=== PATIENT | male | born 1955 | race Caucasian/White ===

== ENCOUNTER 2016-11-19 16:24 | Emergency (ER) | payer MEDICAID ==
[~2016-11-19] VITALS: Ht 188 cm; Wt 70.0 kg
[~2016-11-19 16:24] MED LIST: CARB200 PO; CYCL-36 PO; DARU800T PO; HYDR12.56 PO; IBUP600 PO; INTE200T2 PO; LISI30TA44 PO; NORV100T PO; OXYC5 PO; [UNRECOGNIZED DRUG - CODE] PO
[2016-11-19 16:27] VITALS: BP 179/98; PULSE 65; RESP 18; TEMP 98.2; O2SAT 98
--- NOTE | 2016-11-19 17:12 | PD ---
HPI Chief Complaint: Abdominal Pain Time Seen by Provider: 17:12 Travel History International Travel<30 days: No Contact w/Intl Traveler<30days: No Traveled to known affect area: No History of Present Illness HPI 61-year-old male with a history of HIV and hepatitis C presents to the emergency department for evaluation of bilateral hernias. The patient states that for the past 1-2 months he has developed bilateral inguinal hernias after lifting something heavy. That the pain usually lasts for only a few seconds and is aggravated only with heavy lifting or coughing. States that today he lifted a heavy box and the pain was greatly aggravated. States that they are still able to be reduced however he is in pain and came in for pain control. He denies any fever, chills, nausea, vomiting, diarrhea, constipation. States that he is on medications for HIV, CD4 count is above 200 and his viral load is undetectable. No other complaints. PFSH Past Medical History Hx Anticoagulant Therapy: Yes Arthritis: Yes Asthma: No Autoimmune Disease: Yes (FULL BLOWN AIDS ) Blood Disorders: No Anxiety: Yes Depression: Yes Heart Rhythm Problems: No Cancer: No Cardiovascular Problems: Yes (HTN) High Cholesterol: No Chemotherapy: No Chest Pain: No Congestive Heart Failure: No Cirrhosis: Yes COPD: No Cerebrovascular Accident: Yes Diabetes: No Diminished Hearing: No Endocrine: No Gastrointestinal Disorders: Yes (HX OF CIRRHOSIS, BILATERAL INGUINAL HERNIAS) GERD: Yes Glaucoma: No Genitourinary: Yes Headaches: Yes Hepatitis: Yes (HEP C ) Hiatal Hernia: No Hypertension: No Immune Disorder: Yes (HIV) Inguinal Hernia: Yes (BILATERAL ) Implanted Vascular Access Dvce: Yes Kidney Stones: No Musculoskeletal: Yes Neurologic: Yes Psychiatric: Yes Reproductive: No Respiratory: No Integumentary: Yes (H/O MRSA INFECTION HAND/ARMS) Migraines: Yes Myocardial Infarction: No Radiation Therapy: No Renal Failure: No Seizures: No Sickle Cell Disease: No Sleep Apnea: No Thyroid Disease: No Ulcer: Yes Tetanus Vaccination: < 5 Years Influenza Vaccination: No ?: Not Past Surgical History Abdominal Surgery: No AICD: No Appendectomy: No Arteriovenous Shunt: No Cardiac Surgery: No Cholecystectomy: No Ear Surgery: No Endocrine Surgery: No Eye Surgery: No Genitourinary Surgery: No Gynecologic Surgery: No Insulin Pump: No Oral Surgery: No Pacemaker: No Thoracic Surgery: No Tonsillectomy: Yes Other Surgery: Yes (LUMP REMOVED FROM LEFT LOWER BACK) Social History Alcohol Use: No (QUIT A MONTH AGO, HX ETOH ABUSE ) Tobacco Use: Yes (~5 CIGARETTES DAILY) Substance Use: Yes (MARIJUANA) Allergies-Medications (Allergen,Severity, Reaction): Coded Allergies: No Known Allergies (Unverified , 11/19/16) Reported Meds & Prescriptions Reported Meds & Active Scripts Active Lortab (Hydrocodone-Acetaminophen) 5-325 Mg Tab 1 Tab PO Q6H PRN Oxycodone (Oxycodone HCl) 5 Mg Tab 5 Mg PO Q6H PRN Flexeril (Cyclobenzaprine HCl) 10 Mg Tab 10 Mg PO TID 10 Days Motrin 600 Mg Tab (Ibuprofen) 600 Mg Tab 600 Mg PO Q6H PRN Reported Lisinopril 30 mg (Lisinopril) 30 Mg Tab 30 Mg PO DAILY Hydrochlorothiazide (Miscellaneous Medication) 12.5 Mg Cap 12.5 Mg PO DAILY Tegretol 200 Mg Tab (Carbamazepine) 200 Mg Tab 200 Mg PO BID Norvir (Ritonavir) 100 Mg Tab 100 Mg PO DAILY Tivicay (Dolutegravir Sodium) 50 Mg Tab 50 Mg PO BID Prezista (Darunavir Ethanolate) 800 Mg Tab 800 Mg PO DAILY Intelence (Etravirine) 200 Mg Tab 200 Mg PO BID Review of Systems Except as stated in HPI: all other systems reviewed are Neg Physical Exam Narrative GENERAL: Well-nourished and well-developed pleasant patient in no acute distress who is nontoxic appearing. SKIN: Warm and dry. HEAD: Normocephalic and atraumatic. EYES: No injection, drainage, or hyphema noted. PERRLA. EOMI. ENT: No nasal drainage noted. Oropharynx is clear. NECK: Supple and the trachea is midline. CARDIOVASCULAR: Regular rate and rhythm. RESPIRATORY: Breath sounds are equal bilaterally with no accessory muscle use, wheezing, rhonchi, or crackles. GASTROINTESTINAL: Bilateral reducible inguinal hernias. Abdomen is soft, non- tender, and nondistended. MUSCULOSKELETAL: No obvious deformities, swelling, cyanosis, or ecchymosis is present throughout the upper and lower extremities. Patient has full range of motion without any signs of neurovascular compromise. NEUROLOGICAL: Awake, alert, and oriented. Normal speech and gait. Cranial nerves are grossly intact. Data Data Last Documented VS Vital Signs Date Time Temp Pulse Resp B/P Pulse Ox O2 Delivery O2 Flow Rate FiO2 11/19/16 16:40 18 11/19/16 16:27 98.2 65 179/98 98 Orders Acetamin-Hydrocod 325-5 Mg ([place] 5-325 (11/19/16 17:15) MDM Medical Decision Making Medical Screen Exam Complete: Yes Emergency Medical Condition: Yes Differential Diagnosis Hernia versus reducible versus incarcerated versus muscle strain Narrative Course 61-year-old male presents to the emergency department for evaluation of bilateral reducible inguinal hernias. Patient is afebrile, vital signs are stable. He is for the past several months. The pain was aggravated today when he lifted a box. No urgent or emergent intervention necessary at this time. Patient is given Lortab 5325 milligrams for pain. He is instructed to follow- up with a general surgeon as an outpatient. No heavy lifting or straining. Patient verbalizes understanding and agreement with treatment plan. Diagnosis Primary Impression: Bilateral inguinal hernia Qualified Code: K40.20 - Bilateral inguinal hernia without obstruction or gangrene, recurrence not specified Referrals: Stan Wolff MD General Surgeon Patient Instructions: General Instructions, Inguinal Hernia (ED) Additional Instructions: No heavy lifting or straining. Take medication as prescribed with food and a full glass of water. Do not take Lortab with alcohol or while driving. Follow-up with a general surgeon. Return to the ED for any acute worsening of symptoms. Med/Other Pt SpecificInfo: Prescription(s) given Scripts Hydrocodone-Acetaminophen (Lortab)5-325 Mg Tab1 Tab PO Q6H PRN (PAIN GREATER THAN 6) #15 TAB Ref 0 Prov:Lissette Ray MD 11/19/16 Disposition: 01 DISCHARGE HOME Condition: Stable Carolynn Cervantes November 19, 2016 17:12
[2016-11-19] MEDS ORDERED: HYDR-3533 PO (17:13)
[2016-11-19] MEDS ORDERED: ACETAMINOPHEN/HYDROcodone 325 MG/5 MG TAB PO ONE (17:15)
== END 2016-11-19 17:57 | disposition home or self-care (01) ==
LOC: NEPD 16:24
DX: K40.20 Bilateral inguinal hernia, without obstruction or gangrene, not specified as recurrent (principal); B20 Human immunodeficiency virus [HIV] disease; B19.20 Unspecified viral hepatitis C without hepatic coma
CPT/HCPCS: 99283

== ENCOUNTER 2017-01-17 14:45 | Emergency (ER) | payer MEDICAID ==
[~2017-01-17] VITALS: Ht 188 cm; Wt 77.2 kg
[~2017-01-17 14:45] MED LIST changes: +HYDR-3533 PO
[2017-01-17 14:50] VITALS: BP 139/84; PULSE 82; RESP 18; TEMP 98.8; O2SAT 99
[2017-01-17] MEDS ORDERED: NORV100T PO (15:32)
[2017-01-17] MEDS ORDERED: DOLU1TAB PO (15:32)
[2017-01-17] MEDS ORDERED: LISI30TA4 PO (15:32)
[2017-01-17] MEDS ORDERED: DARU800T PO (15:32)
[2017-01-17] MEDS ORDERED: INTE200T PO (15:32)
[2017-01-17] MEDS ORDERED: TEGR200T PO (15:32)
[2017-01-17] MEDS ORDERED: CEPH-460 PO (15:54)
[2017-01-17] MEDS ORDERED: BACT800T5 PO (15:54)
--- NOTE | 2017-01-17 15:55 | PD ---
HPI Chief Complaint: Skin Problem Time Seen by Provider: 15:53 Travel History International Travel<30 days: No Contact w/Intl Traveler<30days: No Traveled to known affect area: No History of Present Illness HPI 61-year-old male presents to emergency Department with complaint of pain, swelling, redness to the dorsal aspect of his left hand over the area of the second and third metacarpals. Denies history of gout. Reports being up-to- date on his tetanus vaccination. Reports tingling in his second finger. Denies fever, vomiting. Is requesting pain medications for his pain. No known allergies. Has no medical complaints. No midline factors or associated signs and symptoms. PFSH Past Medical History Hx Anticoagulant Therapy: Yes Arthritis: Yes Asthma: No Autoimmune Disease: Yes (FULL BLOWN AIDS ) Blood Disorders: No Anxiety: Yes Depression: Yes Heart Rhythm Problems: No Cancer: No Cardiovascular Problems: Yes (HTN) High Cholesterol: No Chemotherapy: No Chest Pain: No Congestive Heart Failure: No Cirrhosis: Yes COPD: No Cerebrovascular Accident: Yes Diabetes: No Diminished Hearing: No Endocrine: No Gastrointestinal Disorders: Yes (HX OF CIRRHOSIS, BILATERAL INGUINAL HERNIAS) GERD: Yes Glaucoma: No Genitourinary: Yes Headaches: Yes Hepatitis: Yes (HEP C ) Hiatal Hernia: No Hypertension: No Immune Disorder: Yes (HIV) Inguinal Hernia: Yes (BILATERAL ) Implanted Vascular Access Dvce: Yes Kidney Stones: No Musculoskeletal: Yes Neurologic: Yes Psychiatric: Yes Reproductive: No Respiratory: No Integumentary: Yes (H/O MRSA INFECTION HAND/ARMS) Migraines: Yes Myocardial Infarction: No Radiation Therapy: No Renal Failure: No Seizures: No Sickle Cell Disease: No Sleep Apnea: No Thyroid Disease: No Ulcer: Yes Past Surgical History Abdominal Surgery: No AICD: No Appendectomy: No Arteriovenous Shunt: No Cardiac Surgery: No Cholecystectomy: No Ear Surgery: No Endocrine Surgery: No Eye Surgery: No Genitourinary Surgery: No Gynecologic Surgery: No Insulin Pump: No Oral Surgery: No Pacemaker: No Thoracic Surgery: No Tonsillectomy: Yes Other Surgery: Yes (LUMP REMOVED FROM LEFT LOWER BACK) Social History Alcohol Use: No (QUIT A MONTH AGO, HX ETOH ABUSE ) Tobacco Use: Yes (~5 CIGARETTES DAILY) Substance Use: Yes (MARIJUANA) Allergies-Medications (Allergen,Severity, Reaction): Coded Allergies: No Known Allergies (Unverified , 01/17/17) Reported Meds & Prescriptions Reported Meds & Active Scripts Active Bactrim DS (Sulfamethoxazole-Trimethoprim) 800-160 Mg Tab 1 Tab PO BID 10 Days Keflex (Cephalexin) 500 Mg Cap 500 Mg PO Q6H 10 Days Reported Tivicay (Dolutegravir Sodium) 50 Mg Tab 50 Mg PO BID Intelence (Etravirine) 200 Mg Tab 200 Mg PO BID Norvir (Ritonavir) 100 Mg Tab 300 Mg PO DAILY Lisinopril 30 Mg Tab 30 Mg PO DAILY Prezista (Darunavir) 800 Mg Tab 800 Mg PO DAILY Tegretol (Carbamazepine) 200 Mg Tab 200 Mg PO BID Review of Systems Except as stated in HPI: all other systems reviewed are Neg Physical Exam Narrative GENERAL: Well-nourished, well-developed male patient, in no acute distress; disheveled SKIN: Warm and dry. Dorsal aspect of left hand just below the second and third digits to the area of the metacarpals with mild edema, erythema and warmth to touch; hand is with full range of motion at all joints; sensory intact to all fingers. Left upper except what is supple and non-tense with 2+ radial pulse and sensory intact without erythema or edema. No lymphangitis. HEAD: Atraumatic. Normocephalic. EYES: Pupils equal and round. No scleral icterus. No injection or drainage. ENT: Mucosa pink and moist. Airway patent. NECK: Trachea midline. CARDIOVASCULAR: Regular rate. RESPIRATORY: No accessory muscle use. GASTROINTESTINAL: Flat. MUSCULOSKELETAL: No obvious deformities. No clubbing. No cyanosis. No edema. NEUROLOGICAL: Awake and alert. Oriented 3. No obvious cranial nerve deficits. Motor grossly within normal limits. Normal speech. PSYCHIATRIC: Appropriate mood and affect; insight and judgment normal. Data Data Last Documented VS Vital Signs Date Time Temp Pulse Resp B/P Pulse Ox O2 Delivery O2 Flow Rate FiO2 01/17/17 14:50 98.8 82 18 139/84 99 Room Air MDM Medical Decision Making Medical Screen Exam Complete: Yes Emergency Medical Condition: Yes Medical Record Reviewed: Yes Differential Diagnosis Cellulitis, insect bite, less likely septic joint Narrative Course 61-year-old male with suspected cellulitis to the left hand. She is afebrile nontoxic appearing. Patient is demanding narcotic pain medications for his pain. However the patient a nonnarcotic for pain and he declined. Keflex and Bactrim prescribed for home. Instructed patient to follow up with primary care provider. Patient verbalizes understanding and agreement with treatment plan. Patient is medically cleared and stable for discharge. Discussed reasons to return to the emergency department. Patient agrees with treatment plan. The patients vital signs are stable and the patient is stable for outpatient follow- up and treatment. Patient discharged home, stable and in no acute distress. Diagnosis Primary Impression: Cellulitis of hand, left Referrals: [facility] Primary Care Physician Patient Instructions: Cellulitis (ED), General Instructions Additional Instructions: Complete full course of antibiotics Warm compresses to the affected area Keep area clean and dry Ibuprofen or Tylenol as directed and as needed for pain and inflammation Follow-up with primary care provider Return to emergency department immediately with worsening of symptoms Med/Other Pt SpecificInfo: Prescription(s) given Scripts Sulfamethoxazole-Trimethoprim (Bactrim DS)800-160 Mg Tab1 Tab PO BID 10 Days Ref 0 Prov:Carolynn Manuel 01/17/17 Cephalexin (Keflex)500 Mg [id number] Mg PO Q6H 10 Days Ref 0 Prov:Carolynn Manuel 01/17/17 Disposition: 01 DISCHARGE HOME Condition: Stable Carolynn Manuel Jan 17, 2017 15:55
== END 2017-01-17 16:36 | disposition home or self-care (01) ==
LOC: NEPK 14:45
DX: L03.114 Cellulitis of left upper limb (principal); B20 Human immunodeficiency virus [HIV] disease; I10 Essential (primary) hypertension; K74.60 Unspecified cirrhosis of liver; B19.20 Unspecified viral hepatitis C without hepatic coma; Z72.0 Tobacco use
CPT/HCPCS: 99284

== ENCOUNTER 2017-01-22 10:39 | Emergency (ER) | payer MEDICAID ==
[~2017-01-22] VITALS: Ht 188 cm; Wt 78.0 kg
[~2017-01-22 10:39] MED LIST changes: +BACT800T5 PO; -CARB200 PO; +CEPH-460 PO; -CYCL-36 PO; +DOLU1TAB PO; -HYDR-3533 PO; -HYDR12.56 PO; -IBUP600 PO; +INTE200T PO; -INTE200T2 PO; +LISI30TA4 PO; -LISI30TA44 PO; -OXYC5 PO; +TEGR200T PO; -[UNRECOGNIZED DRUG - CODE] PO
[2017-01-22 10:49] VITALS: BP 148/84; PULSE 77; RESP 18; TEMP 98.8; O2SAT 98
[2017-01-22] MEDS ORDERED: GABA300C5 PO (11:20)
[2017-01-22] MEDS ORDERED: TAMS5CAP PO (11:20)
[2017-01-22] MEDS ORDERED: DARU1TAB2 PO (11:20)
[2017-01-22] MEDS ORDERED: ORPHENADRINE INJ 60 MG/2 ML AMP IM ONE (11:30)
[2017-01-22] MEDS ORDERED: KETOROLAC TROMETHAMINE 60 MG/2 ML (IM) VIAL IM ONE (11:30)
--- NOTE | 2017-01-22 11:53 | PD ---
HPI Chief Complaint: Back/ Neck Pain or Injury Time Seen by Provider: 11:30 Travel History International Travel<30 days: No Contact w/Intl Traveler<30days: No Traveled to known affect area: No History of Present Illness HPI 61-year-old male presents emergency department for evaluation of bilateral lower back pain. Patient reports that 5 days ago while getting out of bed he felt sharp pain in his low back. Since then he reports the pain has steadily increased and he now feels he can't stand up straight. The pain is aching/ spasming, nonradiating, worse with movement, relieved with rest. He reports his pain is similar to previous minor back injuries. He denies fever, chills, incontinence, numbness/tingling/weakness in extremities. Patient is HIV positive. He reports compliance with his HARRT therapy. He reports his viral load is undetectable. PFSH Past Medical History Hx Anticoagulant Therapy: Yes Arthritis: Yes Asthma: No Autoimmune Disease: Yes (FULL BLOWN AIDS ) Blood Disorders: No Anxiety: Yes Depression: Yes Heart Rhythm Problems: No Cancer: No Cardiovascular Problems: Yes (HTN) High Cholesterol: No Chemotherapy: No Chest Pain: No Congestive Heart Failure: No Cirrhosis: Yes COPD: No Cerebrovascular Accident: Yes Diabetes: No Diminished Hearing: No Endocrine: No Gastrointestinal Disorders: Yes (HX OF CIRRHOSIS, BILATERAL INGUINAL HERNIAS) GERD: Yes Glaucoma: No Genitourinary: Yes Headaches: Yes Hepatitis: Yes (HEP C ) Hiatal Hernia: No Hypertension: No Immune Disorder: Yes (HIV) Inguinal Hernia: Yes (BILATERAL ) Implanted Vascular Access Dvce: Yes Kidney Stones: No Musculoskeletal: Yes Neurologic: Yes Psychiatric: Yes Reproductive: No Respiratory: No Integumentary: Yes (H/O MRSA INFECTION HAND/ARMS) Migraines: Yes Myocardial Infarction: No Radiation Therapy: No Renal Failure: No Seizures: No Sickle Cell Disease: No Sleep Apnea: No Thyroid Disease: No Ulcer: Yes Past Surgical History Abdominal Surgery: No AICD: No Appendectomy: No Arteriovenous Shunt: No Cardiac Surgery: No Cholecystectomy: No Ear Surgery: No Endocrine Surgery: No Eye Surgery: No Genitourinary Surgery: No Gynecologic Surgery: No Insulin Pump: No Oral Surgery: No Pacemaker: No Thoracic Surgery: No Tonsillectomy: Yes Other Surgery: Yes (LUMP REMOVED FROM LEFT LOWER BACK) Social History Alcohol Use: No (QUIT A MONTH AGO, HX ETOH ABUSE ) Tobacco Use: Yes (~5 CIGARETTES DAILY) Substance Use: Yes (MARIJUANA) Allergies-Medications (Allergen,Severity, Reaction): Coded Allergies: No Known Allergies (Unverified , 01/17/17) Reported Meds & Prescriptions Reported Meds & Active Scripts Active Bactrim DS (Sulfamethoxazole-Trimethoprim) 800-160 Mg Tab 1 Tab PO BID 10 Days Keflex (Cephalexin) 500 Mg Cap 500 Mg PO Q6H 10 Days Reported Prezcobix (Darunavir-Cobicistat) 800-150 Mg Tab 1 Tab PO DAILY Gabapentin 300 Mg Cap 300 Mg PO TID Flomax (Tamsulosin HCl) 0.4 Mg Cap 0.4 Mg PO DAILY Tivicay (Dolutegravir Sodium) 50 Mg Tab 50 Mg PO BID Intelence (Etravirine) 200 Mg Tab 200 Mg PO BID Lisinopril 30 Mg Tab 30 Mg PO DAILY Tegretol (Carbamazepine) 200 Mg Tab 200 Mg PO BID Review of Systems Except as stated in HPI: all other systems reviewed are Neg General / Constitutional: No: Fever Eyes: No: Visual changes HENT: No: Headaches Cardiovascular: No: Chest Pain or Discomfort Respiratory: No: Shortness of Breath Gastrointestinal: No: Abdominal Pain Genitourinary: No: Dysuria Musculoskeletal: Positive: Other (low back pain) Skin: No Rash Physical Exam Narrative GENERAL: Alert, well-appearing male no acute distress. SKIN: Focused skin assessment warm/dry. HEAD: Atraumatic. Normocephalic. EYES: Pupils equal and round. No scleral icterus. No injection or drainage. ENT: No nasal bleeding or discharge. Mucous membranes pink and moist. NECK: Trachea midline. No JVD. CARDIOVASCULAR: Regular rate and rhythm. No murmur appreciated. RESPIRATORY: No accessory muscle use. Clear to auscultation. Breath sounds equal bilaterally. GASTROINTESTINAL: Abdomen soft, non-tender, nondistended. Hepatic and splenic margins not palpable. MUSCULOSKELETAL: No obvious deformities. No clubbing. No cyanosis. No edema. BACK: No cervical, thoracic, lumbar spine tenderness. Tender to palpation in the bilateral lumbar paraspinous muscle region. No CVA tenderness NEUROLOGICAL: Awake and alert. No obvious cranial nerve deficits. Motor grossly within normal limits. Normal speech. 5 out of 5 strength in upper and lower extremities. PSYCHIATRIC: Appropriate mood and affect; insight and judgment normal. Data Data Last Documented VS Vital Signs Date Time Temp Pulse Resp B/P Pulse Ox O2 Delivery O2 Flow Rate FiO2 01/22/17 10:49 98.8 77 18 148/84 98 Orders Ketorolac Inj (Toradol Inj) (01/22/17 11:30) Orphenadrine Inj (Norflex Inj) (01/22/17 11:30) Morphine Inj (Morphine Inj) (01/22/17 12:15) Ondansetron Inj (Zofran Inj) (01/22/17 12:15) Morphine Inj (Morphine Inj) (01/22/17 12:30) [facility] Medical Decision Making Medical Screen Exam Complete: Yes Emergency Medical Condition: Yes Differential Diagnosis Lumbar strain, herniated disc Narrative Course 61-year-old male presents emergency department for evaluation of bilateral low back pain 5 days. Patient reports similar pain in the past previous back injuries. Patient denies fever, chills, incontinence, numbness/weakness/ tingling in extremities. His physical exam is reassuring. He has tenderness in the bilateral paraspinous muscle lumbar region. Patient will be treated for lumbar strain. Her precautions discussed. Patient agrees to plan. 1240: Patient reassessed. He reports pain improvement and requesting discharge. Patient is emulating around the room without difficulty. Return precautions discussed with patient. Patient verbalizes understanding. Diagnosis Primary Impression: Lumbar strain Qualified Code: S39.012A - Lumbar strain, initial encounter Referrals: Primary Care Physician Additional Instructions: Take medications as described. Follow up with her primary care doctor for recheck. Return to the emergency department if he develop new or worsening symptoms. Scripts Methocarbamol (Robaxin)500 Mg [id number] Mg PO TID PRN (MUSCLE SPASM) #12 TAB Prov:Carey Daniel 01/22/17 Naproxen (Naprosyn)500 Mg [id number] Mg PO BID #30 TAB Ref 0 Prov:Carey Daniel 01/22/17 Disposition: 01 DISCHARGE HOME Condition: Stable Carey Daniel Jan 22, 2017 11:53
[2017-01-22] MEDS ORDERED: MORPHINE SULFATE 4 MG/ML INJ IV PUSH ONE (12:15)
[2017-01-22] MEDS ORDERED: ONDANSETRON HCL 4 MG/2 ML VIAL IV PUSH ONE (12:15)
[2017-01-22] MEDS ORDERED: MORPHINE SULFATE 8 MG/ML INJ IV PUSH ONE (12:30)
[2017-01-22] MEDS ORDERED: ROBA500T PO (12:47)
[2017-01-22] MEDS ORDERED: NAPR500 PO (12:47)
[2017-01-22 13:08] VITALS: RESP 18
[2017-01-23] MEDS ORDERED: HYDR-3533 PO (14:16)
[2017-01-23] MEDS ORDERED: PRED20 PO (14:16)
[2017-01-23] MEDS ORDERED: CYCL1TAB29 PO (14:16)
== END 2017-01-22 13:30 | disposition home or self-care (01) ==
LOC: NEPD 10:39
DX: S39.012A Strain of muscle, fascia and tendon of lower back, initial encounter (principal); X50.9XXA Other and unspecified overexertion or strenuous movements or postures, initial encounter
CPT/HCPCS: 96372; 96374; 96375; 99284; J1885; J2270; J2360; J2405

== ENCOUNTER 2017-01-23 13:32 | Emergency (ER) | payer MEDICAID ==
[~2017-01-23 13:32] MED LIST changes: +DARU1TAB2 PO; +GABA300C5 PO; +NAPR500 PO; +ROBA500T PO; +TAMS5CAP PO
[2017-01-23 13:35] VITALS: BP 174/90; PULSE 70; RESP 24; TEMP 97.5; O2SAT 98
[2017-01-23] MEDS ORDERED: KETOROLAC TROMETHAMINE 60 MG/2 ML (IM) VIAL IM ONE (14:15)
[2017-01-23] MEDS ORDERED: predniSONE 20 MG TAB PO ONE (14:15)
[2017-01-23] MEDS ORDERED: PRED20 PO (14:16)
[2017-01-23] MEDS ORDERED: CYCL1TAB29 PO (14:16)
[2017-01-23] MEDS ORDERED: HYDR-3533 PO (14:16)
--- NOTE | 2017-01-23 14:21 | PD ---
HPI Chief Complaint: Back/ Neck Pain or Injury Time Seen by Provider: 14:16 Travel History International Travel<30 days: No Contact w/Intl Traveler<30days: No Traveled to known affect area: No History of Present Illness HPI 61-year-old male presents the department status post an onset low back pain bilaterally somewhat more on the left than the right. Patient was seen yesterday here, prescribed Naprosyn and Robaxin after receiving 2 doses of morphine here for his back pain yesterday. He states it started 6 days [place] and felt a sudden onset twinge in his had progressively worsening pain ever since. Patient denies numbness, tingling, or urinary symptoms. His pain is localized to the base of the spine, and does not seem to radiate down either leg. Patient does have a history of HIV. Is currently up-to-date on his therapy and viral load is undetectable. He states the medications he was given yesterday have not helped whatsoever. He states he had turned down a job today secondary to the pain in his back. He denies weakness. He has no known drug allergies. PFSH Past Medical History Hx Anticoagulant Therapy: Yes Arthritis: Yes Asthma: No Autoimmune Disease: Yes (FULL BLOWN AIDS ) Blood Disorders: No Anxiety: Yes Depression: Yes Heart Rhythm Problems: No Cancer: No Cardiovascular Problems: Yes (HTN) High Cholesterol: No Chemotherapy: No Chest Pain: No Congestive Heart Failure: No Cirrhosis: Yes COPD: No Cerebrovascular Accident: Yes Diabetes: No Diminished Hearing: No Endocrine: No Gastrointestinal Disorders: Yes (HX OF CIRRHOSIS, BILATERAL INGUINAL HERNIAS) GERD: Yes Glaucoma: No Genitourinary: Yes Headaches: Yes Hepatitis: Yes (HEP C ) Hiatal Hernia: No Hypertension: No Immune Disorder: Yes (HIV) Inguinal Hernia: Yes (BILATERAL ) Implanted Vascular Access Dvce: Yes Kidney Stones: No Musculoskeletal: Yes Neurologic: Yes Psychiatric: Yes Reproductive: No Respiratory: No Integumentary: Yes (H/O MRSA INFECTION HAND/ARMS) Migraines: Yes Myocardial Infarction: No Radiation Therapy: No Renal Failure: No Seizures: No Sickle Cell Disease: No Sleep Apnea: No Thyroid Disease: No Ulcer: Yes Past Surgical History Abdominal Surgery: No AICD: No Appendectomy: No Arteriovenous Shunt: No Cardiac Surgery: No Cholecystectomy: No Ear Surgery: No Endocrine Surgery: No Eye Surgery: No Genitourinary Surgery: No Gynecologic Surgery: No Insulin Pump: No Oral Surgery: No Pacemaker: No Thoracic Surgery: No Tonsillectomy: Yes Other Surgery: Yes (LUMP REMOVED FROM LEFT LOWER BACK) Social History Alcohol Use: No (QUIT A MONTH AGO, HX ETOH ABUSE ) Tobacco Use: Yes (~5 CIGARETTES DAILY) Substance Use: Yes (MARIJUANA) Allergies-Medications (Allergen,Severity, Reaction): Coded Allergies: No Known Allergies (Unverified , 01/23/17) Reported Meds & Prescriptions Reported Meds & Active Scripts Active Lortab (Hydrocodone-Acetaminophen) 5-325 Mg Tab 1 Tab PO Q6H PRN Prednisone 20 Mg Tab 20 Mg PO BID Flexeril (Cyclobenzaprine HCl) 10 Mg Tab 10 Mg PO TID Robaxin (Methocarbamol) 500 Mg Tab 500 Mg PO TID PRN Naprosyn (Naproxen) 500 Mg Tab 500 Mg PO BID Reported Prezcobix (Darunavir-Cobicistat) 800-150 Mg Tab 1 Tab PO DAILY Gabapentin 300 Mg Cap 300 Mg PO TID Flomax (Tamsulosin HCl) 0.4 Mg Cap 0.4 Mg PO DAILY Tivicay (Dolutegravir Sodium) 50 Mg Tab 50 Mg PO BID Intelence (Etravirine) 200 Mg Tab 200 Mg PO BID Lisinopril 30 Mg Tab 30 Mg PO DAILY Review of Systems Except as stated in HPI: all other systems reviewed are Neg General / Constitutional: No: Fever Eyes: No: Visual changes HENT: No: Headaches Cardiovascular: No: Chest Pain or Discomfort Respiratory: No: Shortness of Breath Gastrointestinal: No: Abdominal Pain Genitourinary: No: Dysuria Musculoskeletal: No: Pain Skin: No Rash Neurologic: No: Weakness Psychiatric: No: Depression Endocrine: No: Polydipsia Hematologic/Lymphatic: No: Easy Bruising Physical Exam Narrative GENERAL: Patient is in moderate distress. SKIN: Warm and dry. Normal color. Normal turgor. No rash. HEAD: Atraumatic. Normocephalic. EYES: Pupils equal and round. No scleral icterus. No injection or drainage. ENT: No nasal bleeding or discharge. Mucous membranes pink and moist. Pharynx is clear. NECK: Trachea midline. Supple nontender. CARDIOVASCULAR: Regular rate and rhythm. RESPIRATORY: No accessory muscle use. Clear to auscultation. Breath sounds equal bilaterally. GASTROINTESTINAL: Abdomen soft, non-tender, nondistended. Hepatic and splenic margins not palpable. MUSCULOSKELETAL: Extremities without clubbing, cyanosis, or edema. No obvious deformities. Patient has tenderness with palpation along the bilateral lower lumbar region into the sciatic notches bilaterally somewhat more renounced on the left than the right. Patient has positive straight leg raise pain more on the left than the right at 45. Weakness is not appreciated other than secondary to pain. NEUROLOGICAL: Awake and alert. No obvious cranial nerve deficits. Motor grossly within normal limits. Five out of 5 muscle strength in the arms and legs.No decrease in sensation noted. Normal speech. PSYCHIATRIC: Appropriate mood and affect; insight and judgment normal. Data Data Last Documented VS Vital Signs Date Time Temp Pulse Resp B/P Pulse Ox O2 Delivery O2 Flow Rate FiO2 01/23/17 13:35 97.5 70 24 174/90 98 Room Air Orders Ketorolac Inj (Toradol Inj) (01/23/17 14:15) Prednisone (Deltasone) (01/23/17 14:15) MDM Medical Decision Making Medical Screen Exam Complete: Yes Emergency Medical Condition: Yes Medical Record Reviewed: Yes Differential Diagnosis Lumbago. Sciatica. Lumbar strain. Narrative Course Patient is medically stable at time of exam. Radiographic imaging is not felt warranted based on the history and physical. Patient is given Toradol 60 mg IM as well as 60 mg prednisone by mouth. Patient will continue on prednisone 20 mg twice a day 7 days. Patient is given Flexeril 10 mg one every 6 hours #30. Patient is also given Lortab 5/325 one every 6 hours when necessary #12. Patient is encouraged to use heat followed by ice and frequent walking. Patient should follow up if symptoms do not improve or worsen as discussed. Diagnosis Primary Impression: Lumbago of lumbar region with sciatica Referrals: Primary Care Physician Patient Instructions: Acute Low Back Pain (ED), General Instructions, Sciatica (ED) Additional Instructions: Radiographic imaging is not felt warranted based on the history and physical. Patient is given Toradol 60 mg IM as well as 60 mg prednisone by mouth. Patient will continue on prednisone 20 mg twice a day 7 days. Patient is given Flexeril 10 mg one every 6 hours #30. Patient is also given Lortab 5/325 one every 6 hours when necessary #12. Patient is encouraged to use heat followed by ice and frequent walking. Patient should follow up if symptoms do not improve or worsen as discussed. Med/Other Pt SpecificInfo: Prescription(s) given, Existing Med Changed Scripts Hydrocodone-Acetaminophen (Lortab)5-325 Mg Tab1 Tab PO Q6H PRN (PAIN) #12 TAB Prov:Meme Douglas MD 01/23/17 Prednisone 20 Mg Tab20 Mg PO BID #14 TAB Prov:Meme Douglas MD 01/23/17 Cyclobenzaprine (Flexeril)10 Mg Tab10 Mg PO TID #30 TAB Prov:Meme Douglas MD 01/23/17 Disposition: 01 DISCHARGE HOME Condition: Stable Stan Carvajal Jan 23, 2017 14:21
== END 2017-01-23 14:59 | disposition home or self-care (01) ==
LOC: NEPK 13:32
DX: M54.40 Lumbago with sciatica, unspecified side (principal); Z21 Asymptomatic human immunodeficiency virus [HIV] infection status; I10 Essential (primary) hypertension; K74.60 Unspecified cirrhosis of liver; K21.9 Gastro-esophageal reflux disease without esophagitis; M13.80 Other specified arthritis, unspecified site; F41.9 Anxiety disorder, unspecified; F32.9 Major depressive disorder, single episode, unspecified; Z86.73 Personal history of transient ischemic attack (TIA), and cerebral infarction without residual deficits
CPT/HCPCS: 96372; 99284; J1885; J7512

== ENCOUNTER 2017-01-29 15:06 | Emergency (ER) | payer MEDICAID ==
[~2017-01-29] VITALS: Ht 188 cm; Wt 79.0 kg
[~2017-01-29 15:06] MED LIST changes: -BACT800T5 PO; -CEPH-460 PO; +CYCL1TAB29 PO; -DARU800T PO; +HYDR-3533 PO; -NORV100T PO; +PRED20 PO; -TEGR200T PO
[2017-01-29 15:13] VITALS: BP 158/88; PULSE 69; RESP 16; TEMP 97.6; O2SAT 98
--- NOTE | 2017-01-29 16:42 | PD ---
HPI Chief Complaint: Lump, Cyst, Hernia Time Seen by Provider: 16:42 Travel History International Travel<30 days: No Contact w/Intl Traveler<30days: No Traveled to known affect area: No History of Present Illness HPI 61-year-old male presents to the emergency department for evaluation of bilateral inguinal hernias and persistent low back pain. Patient has been seen and evaluated for both these in the emergency department within the last year. He states when he stands up the hernias "bulging out" and are uncomfortable. He is concerned that they will get worse. Denies any urinary or bowel changes. Reports no new injury. No saddle paresthesia, loss of bowel or bladder, or acute lower extremity weakness. He has had no fever or chills. Denies IV drug use. He has no other symptoms to report. PFSH Past Medical History Hx Anticoagulant Therapy: Yes Arthritis: Yes Asthma: No Autoimmune Disease: Yes (FULL BLOWN AIDS ) Blood Disorders: No Anxiety: Yes Depression: Yes Heart Rhythm Problems: No Cancer: No Cardiovascular Problems: Yes (HTN) High Cholesterol: No Chemotherapy: No Chest Pain: No Congestive Heart Failure: No Cirrhosis: Yes COPD: No Cerebrovascular Accident: Yes Diabetes: No Diminished Hearing: No Endocrine: No Gastrointestinal Disorders: Yes (HX OF CIRRHOSIS, BILATERAL INGUINAL HERNIAS) GERD: Yes Glaucoma: No Genitourinary: Yes Headaches: Yes Hepatitis: Yes (HEP C ) Hiatal Hernia: No Hypertension: No Immune Disorder: Yes (HIV) Inguinal Hernia: Yes (BILATERAL ) Implanted Vascular Access Dvce: Yes Kidney Stones: No Musculoskeletal: Yes Neurologic: Yes Psychiatric: Yes Reproductive: No Respiratory: No Integumentary: Yes (H/O MRSA INFECTION HAND/ARMS) Migraines: Yes Myocardial Infarction: No Radiation Therapy: No Renal Failure: No Seizures: No Sickle Cell Disease: No Sleep Apnea: No Thyroid Disease: No Ulcer: Yes Past Surgical History Abdominal Surgery: No AICD: No Appendectomy: No Arteriovenous Shunt: No Cardiac Surgery: No Cholecystectomy: No Ear Surgery: No Endocrine Surgery: No Eye Surgery: No Genitourinary Surgery: No Gynecologic Surgery: No Insulin Pump: No Oral Surgery: No Pacemaker: No Thoracic Surgery: No Tonsillectomy: Yes Other Surgery: Yes (LUMP REMOVED FROM LEFT LOWER BACK) Social History Alcohol Use: No (QUIT A MONTH AGO, HX ETOH ABUSE ) Tobacco Use: Yes (~5 CIGARETTES DAILY) Substance Use: Yes (MARIJUANA) Allergies-Medications (Allergen,Severity, Reaction): Coded Allergies: No Known Allergies (Unverified , 01/29/17) Reported Meds & Prescriptions Reported Meds & Active Scripts Active Flexeril (Cyclobenzaprine HCl) 10 Mg Tab 10 Mg PO TID Robaxin (Methocarbamol) 500 Mg Tab 500 Mg PO TID PRN Naprosyn (Naproxen) 500 Mg Tab 500 Mg PO BID Reported Tegretol (Carbamazepine) 200 Mg Tab 200 Mg PO BID Gabapentin 300 Mg Cap 300 Mg PO TID Prezcobix (Darunavir-Cobicistat) 800-150 Mg Tab 1 Tab PO DAILY Gabapentin 300 Mg Cap 300 Mg PO TID Flomax (Tamsulosin HCl) 0.4 Mg Cap 0.4 Mg PO DAILY Tivicay (Dolutegravir Sodium) 50 Mg Tab 50 Mg PO BID Intelence (Etravirine) 200 Mg Tab 200 Mg PO BID Lisinopril 30 Mg Tab 30 Mg PO DAILY Review of Systems Except as stated in HPI: all other systems reviewed are Neg Physical Exam Narrative GENERAL: Unkempt male patient, ambulatory and in no acute distress SKIN: Focused skin assessment warm/dry. HEAD: Atraumatic. Normocephalic. EYES: Pupils equal and round. No scleral icterus. No injection or drainage. ENT: No nasal bleeding or discharge. Mucous membranes pink and moist. NECK: Trachea midline. No JVD. CARDIOVASCULAR: Regular rate and rhythm. No murmur appreciated. RESPIRATORY: No accessory muscle use. Clear to auscultation. Breath sounds equal bilaterally. GASTROINTESTINAL: Abdomen soft, non-tender, nondistended. Hepatic and splenic margins not palpable. GENITOURINARY: Testes descended bilaterally without evidence of rotation. No lesions or erythema. No urethral discharge. Palpable inguinal hernia greater on left than right, easily reducible. MUSCULOSKELETAL: No obvious deformities. No clubbing. No cyanosis. No edema. Restless to palpation in the low back, both lumbar spine and paraspinous musculature. No step-off. No deformity. Full strength with generalized bilateral lower extremity weakness. NEUROLOGICAL: Awake and alert. No obvious cranial nerve deficits. Motor grossly within normal limits. Normal speech. PSYCHIATRIC: Appropriate mood and affect; insight and judgment normal. Data Data Last Documented VS Vital Signs Date Time Temp Pulse Resp B/P Pulse Ox O2 Delivery O2 Flow Rate FiO2 01/29/17 15:13 97.6 69 16 158/[address] Lumb Spine W/O Contrast (01/29/17 ) Ketorolac Inj (Toradol Inj) (01/29/17 17:00) Orphenadrine Inj (Norflex Inj) (01/29/17 17:00) Urinalysis - C+S If Indicated (01/29/17 16:58) Labs Laboratory Tests Test 01/29/17 17:45 Urine Color LIGHT-YELLOW Urine Turbidity CLEAR Urine pH 7.0 Urine Specific Emery 1.002 Urine Protein NEG mg/dL Urine Glucose (UA) NEG mg/dL Urine Ketones NEG mg/dL Urine Occult Blood NEG Urine Nitrite NEG Urine Bilirubin NEG Urine Urobilinogen LESS THAN 2.0 MG/DL Urine Leukocyte Esterase NEG Microscopic Urinalysis Comment CULT NOT INDICATED MDM Medical Decision Making Medical Screen Exam Complete: Yes Emergency Medical Condition: Yes Medical Record Reviewed: Yes Differential Diagnosis Lumbar strain versus discogenic pain versus radiculopathy Narrative Course 61-year-old male presents to the emergency department for evaluation. Patient appears without distress. He has a palpable bilateral inguinal hernias but there are easily reducible. Low back pain has been ongoing and the patient has been seen 2 times in the last month for this. Imaging studies have not yet been done. He does have generalized lower extremity weakness. CT imaging is complete any acute abnormality identified. Laboratory Tests Test 01/29/17 17:45 Urine Color LIGHT-YELLOW Urine Turbidity CLEAR Urine pH 7.0 Urine Specific Emery 1.002 Urine Protein NEG mg/dL Urine Glucose (UA) NEG mg/dL Urine Ketones NEG mg/dL Urine Occult Blood NEG Urine Nitrite NEG Urine Bilirubin NEG Urine Urobilinogen LESS THAN 2.0 MG/DL Urine Leukocyte Esterase NEG Microscopic Urinalysis Comment CULT NOT INDICATED Results were discussed with the patient. He'll be discharged home at this time. He is encouraged to continue medication as prescribed and to seek pain management evaluation if symptoms persist. He agrees to return immediately with any acute worsening of symptoms. Diagnosis Primary Impression: Lumbago of lumbar region with sciatica Additional Impressions: Bilateral inguinal hernia Qualified Code: K40.21 - Bilateral recurrent inguinal hernia without obstruction or gangrene Degenerative disc disease, lumbar Referrals: Pain Management Primary Care Physician Patient Instructions: Acute Low Back Pain (ED), General Instructions, Lower Back Exercises (ED), Sciatica (DC) Additional Instructions: ICE And/or warm ice may help to alleviate symptoms Avoid activity that exacerbates pain Continue pain medication as already prescribed Avoid heavy lifting, bending, twisting and flank follow-up to primary care provider Return immediately with any acute worsening symptoms Med/Other Pt SpecificInfo: No Change to Meds Disposition: 01 DISCHARGE HOME Condition: Stable Rolanda Fry Jan 29, 2017 16:42
[2017-01-29] MEDS ORDERED: ORPHENADRINE INJ 60 MG/2 ML AMP IM ONE (17:00)
[2017-01-29] MEDS ORDERED: KETOROLAC TROMETHAMINE 60 MG/2 ML (IM) VIAL IM ONE (17:00)
--- NOTE | 2017-01-29 18:07 | RADRPT ---
EXAM DATE/TIME: 01/29/2017 17:30 [facility] COMPARISON: No previous studies available for comparison. INDICATIONS : Back pain, degenerative disc disease. RADIATION DOSE: 26.19 CTDIvol (mGy) MEDICAL HISTORY : Hypertension. Cirrhosis. Hepatitis C. HIV SURGICAL HISTORY : Left hip replacement ENCOUNTER: Initial ACUITY: 1 day PAIN SCALE: 10/10 LOCATION: Lumbar TECHNIQUE: Volumetric scanning of the lumbar spine was performed. Multiplanar reconstructions in the sagittal, coronal and oblique axial planes were performed. Using automated exposure control and adjustment of the mA and/or kV according to patient size, radiation dose was kept as low as reasonab ly achievable to obtain optimal diagnostic quality images. DICOM format image data is available candace ctronically for review and comparison. FINDINGS: CT scan of the lumbar spine was performed. There is marked discogenic sclerosis with subchondral cystic change on the right side of the L2-3 level. There is a mild leftward scoliosis david und that level. There is a prominent right-sided osteophyte. There is marked endplate irregularity and sclerosis at the L4-5 level with a very large osteophyte an teriorly on the left side. There is moderate degenerative facet disease multiple levels. There is no evidence of an acute fractu re. T12-L1: Unremarkable. L1-L2: Unremarkable. L2-L3: Unremarkable. L3-L4: Unremarkable. L4-L5: There is broad based diffuse annular bulge. There is a moderate canal stenosis. L4 nerve roots exit without difficulty. Lateral recesses are narrowed. L5-S1: Broad based diffuse annular bulge. CONCLUSION: There is degenerative disc disease with marked discogenic sclerosis at both L2-3 and L4-5. No evidence of endplate fracture. Moderate stenosis at L4-5 secondary to diffuse annular bulg e. Prior plane film 04/09/13 used for comparison. Tyler Martinez MD on January 29, 2017 at 17:51 Board Certified Radiologist. This report was verified electronically.
[2017-01-29] MEDS ORDERED: GABA300C5 PO (18:41)
[2017-01-29] MEDS ORDERED: TEGR200T PO (18:42)
[2017-01-29 18:44] LABS: BLOOD, URINE NEG (NEG); GLUCOSE,URINE NEG (NEG); KETONE, URINE NEG (NEG); NITRITE,URINE NEG (NEG); URINE COLOR LIGHT-YELLOW (YELLW/STRAW)
[2017-01-29 18:49] LABS: COMMENT (UR) CULT NOT INDICATED; CULTURE IF INDICATED CULT NOT INDICATED
== END 2017-01-29 21:14 | disposition home or self-care (01) ==
LOC: NEPD 15:06
DX: K40.20 Bilateral inguinal hernia, without obstruction or gangrene, not specified as recurrent (principal); M54.40 Lumbago with sciatica, unspecified side; M51.36 Other intervertebral disc degeneration, lumbar region; R53.1 Weakness; I10 Essential (primary) hypertension; F17.210 Nicotine dependence, cigarettes, uncomplicated; K21.9 Gastro-esophageal reflux disease without esophagitis; K74.60 Unspecified cirrhosis of liver; Z21 Asymptomatic human immunodeficiency virus [HIV] infection status
CPT/HCPCS: 72131; 81001; 96372; 99285; J1885; J2360

== ENCOUNTER 2017-06-24 16:26 | Emergency (ER) | payer MEDICAID ==
[~2017-06-24 16:26] MED LIST changes: +CYCL10TA PO; -CYCL1TAB29 PO; -HYDR-3533 PO; -INTE200T PO; +INTE200T2 PO; -PRED20 PO; +TEGR200T PO
[2017-06-24 16:27] VITALS: BP 182/103; PULSE 77; RESP 14; TEMP 98.6; O2SAT 99
[2017-06-24] MEDS ORDERED: KETO10 PO (18:32)
[2017-06-24] MEDS ORDERED: BACL10TA PO (18:32)
--- NOTE | 2017-06-24 18:38 | PD ---
HPI Chief Complaint: Musculoskeletal Complaint Time Seen by Provider: 18:01 Travel History International Travel<30 days: No Contact w/Intl Traveler<30days: No Traveled to known affect area: No History of Present Illness HPI got up in am and felt lower back "twinge" but was able to ambulate and did his activities today however, over the duration of the day the back has gotten stiffer and more painful to move, specially twisting motion. patient denies any leg weakness, no urinary/fecal incontinence, pain radiating down legs, no fever, no ivda use. PFSH Past Medical History Hx Anticoagulant Therapy: Yes Arthritis: Yes Asthma: No Autoimmune Disease: Yes (FULL BLOWN AIDS ) Blood Disorders: No Anxiety: Yes Depression: Yes Heart Rhythm Problems: No Cancer: No Cardiovascular Problems: Yes (HTN) High Cholesterol: No Chemotherapy: No Chest Pain: No Congestive Heart Failure: No Cirrhosis: Yes COPD: No Cerebrovascular Accident: Yes Diabetes: No Diminished Hearing: No Endocrine: No Gastrointestinal Disorders: Yes (HX OF CIRRHOSIS, BILATERAL INGUINAL HERNIAS) GERD: Yes Glaucoma: No Genitourinary: Yes Headaches: Yes Hepatitis: Yes (HEP C ) Hiatal Hernia: No Heparin Induced Thrombocytopen: No Hypertension: No Immune Disorder: Yes (HIV) Inguinal Hernia: Yes (BILATERAL ) Implanted Vascular Access Dvce: Yes Kidney Stones: No Medical other: No Musculoskeletal: Yes Neurologic: Yes Psychiatric: Yes Reproductive: No Respiratory: No Integumentary: Yes (H/O MRSA INFECTION HAND/ARMS) Immunizations Current: Yes Migraines: Yes Myocardial Infarction: No Radiation Therapy: No Renal Failure: No Seizures: No Sickle Cell Disease: No Sleep Apnea: No Thyroid Disease: No Ulcer: Yes Past Surgical History Abdominal Surgery: No AICD: No Appendectomy: No Arteriovenous Shunt: No Cardiac Surgery: No Cholecystectomy: No Ear Surgery: No Endocrine Surgery: No Eye Surgery: No Genitourinary Surgery: No Gynecologic Surgery: No Insulin Pump: No Neurologic Surgery: No Oral Surgery: No Pacemaker: No Thoracic Surgery: No Tonsillectomy: Yes Other Surgery: Yes (LUMP REMOVED FROM LEFT LOWER BACK) Social History Alcohol Use: Yes (denies daily use ) Tobacco Use: Yes (1-2 cigg per day ) Substance Use: Yes (MARIJUANA) Allergies-Medications (Allergen,Severity, Reaction): Coded Allergies: No Known Allergies (Unverified Adverse Reaction, Unknown, 06/24/17) Reported Meds & Prescriptions Reported Meds & Active Scripts Active Ketorolac (Ketorolac Tromethamine) 10 Mg Tab 10 Mg PO Q6HR PRN 5 Days Baclofen 10 Mg Tab 10 Mg PO Q8HR 7 Days Flexeril (Cyclobenzaprine HCl) 10 Mg Tab 10 Mg PO TID Robaxin (Methocarbamol) 500 Mg Tab 500 Mg PO TID PRN Naprosyn (Naproxen) 500 Mg Tab 500 Mg PO BID Reported Tegretol (Carbamazepine) 200 Mg Tab 200 Mg PO BID Prezcobix (Darunavir-Cobicistat) 800-150 Mg Tab 1 Tab PO DAILY Gabapentin 300 Mg Cap 300 Mg PO TID Flomax (Tamsulosin HCl) 0.4 Mg Cap 0.4 Mg PO DAILY Tivicay (Dolutegravir Sodium) 50 Mg Tab 50 Mg PO BID Intelence (Etravirine) 200 Mg Tab 200 Mg PO BID Lisinopril 30 Mg Tab 30 Mg PO DAILY Review of Systems Except as stated in HPI: all other systems reviewed are Neg General / Constitutional: No: Fever Eyes: No: Visual changes HENT: No: Headaches Cardiovascular: No: Chest Pain or Discomfort Respiratory: No: Shortness of Breath Gastrointestinal: No: Abdominal Pain Genitourinary: No: Dysuria Musculoskeletal: Positive: Myalgias, Pain Skin: No Rash Neurologic: No: Weakness Psychiatric: No: Depression Endocrine: No: Polydipsia Hematologic/Lymphatic: No: Easy Bruising Physical Exam Narrative GENERAL: SKIN: Warm and dry. HEAD: Atraumatic. Normocephalic. EYES: Pupils equal and round. No scleral icterus. No injection or drainage. ENT: No nasal bleeding or discharge. Mucous membranes pink and moist. NECK: Trachea midline. No JVD. CARDIOVASCULAR: Regular rate and rhythm. RESPIRATORY: No accessory muscle use. Clear to auscultation. Breath sounds equal bilaterally. GASTROINTESTINAL: Abdomen soft, non-tender, nondistended. Hepatic and splenic margins not palpable. MUSCULOSKELETAL: Extremities without clubbing, cyanosis, or edema. No obvious deformities. NEUROLOGICAL: Awake and alert. No obvious cranial nerve deficits. Motor grossly within normal limits. Five out of 5 muscle strength in the arms and legs. Normal speech. no saddle anesthesia, cremasteric reflex intact, anal wink reflex intact. negative slr. patient is able to ambulate PSYCHIATRIC: Appropriate mood and affect; insight and judgment normal. Data Data Last Documented VS Vital Signs Date Time Temp Pulse Resp B/P (MAP) Pulse Ox O2 Delivery O2 Flow Rate FiO2 06/24/17 19:49 06/24/17 19:11 65 18 100 Room Air 06/24/17 16:27 98.6 Orders Orders Ketorolac Inj (Toradol Inj) (06/24/17 18:45) Orphenadrine Inj (Norflex Inj) (06/24/17 18:45) Ed Discharge Order (06/24/17 19:22) [facility] Medical Decision Making Medical Screen Exam Complete: Yes Emergency Medical Condition: Yes Medical Record Reviewed: Yes Differential Diagnosis lumbar strain v conus v exacerbation of ddd Narrative Course reviewed multiple ct studies and plain xray which show DDD and mild stenosis....no clinical evidence of conus, Diagnosis Primary Impression: Lumbar strain Qualified Codes: S39.012A - Strain of muscle, fascia and tendon of lower back , initial encounter Patient Instructions: General Instructions, Low Back Strain (DC) Scripts Ketorolac (Ketorolac) 10 Mg Tab 10 MG PO Q6HR Y for PAIN for 5 Days, #20 TAB 0 Refills Prov: Abiodun Palmer MD 06/24/17 Baclofen (Baclofen) 10 Mg Tab 10 MG PO Q8HR for 7 Days, #21 TAB 0 Refills Prov: Abiodun Palmer MD 06/24/17 Disposition: 01 DISCHARGE HOME Condition: Stable Abiodun Palmer MD Jun 24, 2017 18:38
[2017-06-24] MEDS ORDERED: KETOROLAC TROMETHAMINE 60 MG/2 ML (IM) VIAL IM ONE (18:45)
[2017-06-24] MEDS ORDERED: ORPHENADRINE INJ 60 MG/2 ML AMP IM ONE (18:45)
[2017-06-24 19:11] VITALS: BP_SYST 188; BP_SYST 207; BP_DIAS 134; BP_DIAS 98; PULSE 65; RESP 18; O2SAT 100
== END 2017-06-24 19:49 | disposition home or self-care (01) ==
LOC: NEPD 16:26
DX: S39.012A Strain of muscle, fascia and tendon of lower back, initial encounter (principal); B20 Human immunodeficiency virus [HIV] disease; B19.20 Unspecified viral hepatitis C without hepatic coma; I10 Essential (primary) hypertension; K74.60 Unspecified cirrhosis of liver; F17.210 Nicotine dependence, cigarettes, uncomplicated; X50.1XXA Overexertion from prolonged static or awkward postures, initial encounter
CPT/HCPCS: 96372; 99284; J1885; J2360

== ENCOUNTER 2017-08-06 13:25 | Emergency (ER) | payer MEDICAID ==
[~2017-08-06] VITALS: Ht 188 cm; Wt 86.4 kg
[~2017-08-06 13:25] MED LIST changes: +BACL10TA PO; +KETO10 PO
[2017-08-06] MEDS ORDERED: GADODIAMIDE PF 287 MG/ML 10 ML VIAL (for RAD MRI) IVCONTRAST ONE (13:26)
[2017-08-06 13:27] VITALS: BP 162/92; PULSE 80; RESP 18; TEMP 98.3; O2SAT 94
--- NOTE | 2017-08-06 14:20 | RADRPT ---
EXAM DATE/TIME: 08/06/2017 14:02 [facility] COMPARISON: No previous studies available for comparison. INDICATIONS : Intermittant left ankle sore on medial side. MEDICAL HISTORY : Hepatitis C. HIV. Cirrhosis. hypertension SURGICAL HISTORY : surgery in left lower leg 1980. ENCOUNTER: Initial ACUITY: >1 year PAIN SCORE: 10/10 LOCATION: Left ankle FINDINGS: There is extensive soft tissue swelling about the ankle mortise. There is no acute fracture. There is a soft tissue defect above the level of the lateral malleolus. No definite bony destruction is seen. CONCLUSION: 1. Degenerative changes. 2. Soft tissue defect. 3. No acute bony abnormality identified. Ashok Martines MD on August 06, 2017 at 14:17 Board Certified Radiologist. This report was verified electronically.
--- NOTE | 2017-08-06 18:11 | PD ---
HPI Chief Complaint: Skin Problem Time Seen by Provider: 17:41 Travel History International Travel<30 days: No Contact w/Intl Traveler<30days: No Traveled to known affect area: No History of Present Illness HPI 61-year-old male with PMH of Hep C, HIV presents to the ED for evaluation of 2 month history of small open wound on the medial malleolus of the left foot. Patient states that he has had a chronic wound in the area for much longer that resolves and then comes back. He can identify no acute injury. He endorses pain at the site, worse with ambulation. He denies fevers, chills, nausea, vomiting, numbness, tingling, weakness, limitations or range of motion of the extremity, history of diabetes. He states that his last viral load was undetectable. He is compliant with his HIV medications. He states that he saw his primary care provider, a PA named Anand, who recommended that he come to the ED to rule out osteomyelitis. PFSH Past Medical History Hx Anticoagulant Therapy: Yes Arthritis: Yes Asthma: No Autoimmune Disease: Yes (FULL BLOWN AIDS ) Blood Disorders: No Anxiety: Yes Depression: Yes Heart Rhythm Problems: No Cancer: No Cardiovascular Problems: Yes (HTN) High Cholesterol: No Chemotherapy: No Chest Pain: No Congestive Heart Failure: No Cirrhosis: Yes COPD: No Cerebrovascular Accident: Yes Diabetes: No Diminished Hearing: No Endocrine: No Gastrointestinal Disorders: Yes (HX OF CIRRHOSIS, BILATERAL INGUINAL HERNIAS) GERD: Yes Glaucoma: No Genitourinary: Yes Headaches: Yes Hepatitis: Yes (HEP C ) Hiatal Hernia: No Heparin Induced Thrombocytopen: No Hypertension: No Immune Disorder: Yes (HIV) Inguinal Hernia: Yes (BILATERAL ) Implanted Vascular Access Dvce: Yes Kidney Stones: No Medical other: No Musculoskeletal: Yes Neurologic: Yes Psychiatric: Yes Reproductive: No Respiratory: No Integumentary: Yes (H/O MRSA INFECTION HAND/ARMS) Immunizations Current: Yes Migraines: Yes Myocardial Infarction: No Radiation Therapy: No Renal Failure: No Seizures: Yes Sickle Cell Disease: No Sleep Apnea: No Thyroid Disease: No Ulcer: Yes Past Surgical History Abdominal Surgery: No AICD: No Appendectomy: No Arteriovenous Shunt: No Cardiac Surgery: No Cholecystectomy: No Ear Surgery: No Endocrine Surgery: No Eye Surgery: No Genitourinary Surgery: No Gynecologic Surgery: No Insulin Pump: No Joint Replacement: Yes (BENEDICTO IN LEFT FEMUR) Neurologic Surgery: No Oral Surgery: No Pacemaker: No Thoracic Surgery: No Tonsillectomy: Yes Other Surgery: Yes (LUMP REMOVED FROM LEFT LOWER BACK) Social History Alcohol Use: Yes (denies daily use ) Tobacco Use: Yes (1-2 cigg per day ) Substance Use: Yes (MARIJUANA, methadone ) Allergies-Medications (Allergen,Severity, Reaction): Coded Allergies: No Known Allergies (Unverified Adverse Reaction, Unknown, 06/24/17) Reported Meds & Prescriptions Reported Meds & Active Scripts Active Bactrim DS (Sulfamethoxazole-Trimethoprim) 800-160 Mg Tab 1 Tab PO BID Doxycycline Hyclate 100 Mg Cap 100 Mg PO BID Reported Tegretol (Carbamazepine) 200 Mg Tab 200 Mg PO BID Prezcobix (Darunavir-Cobicistat) 800-150 Mg Tab 1 Tab PO DAILY Gabapentin 300 Mg Cap 300 Mg PO TID Flomax (Tamsulosin HCl) 0.4 Mg Cap 0.4 Mg PO DAILY Tivicay (Dolutegravir Sodium) 50 Mg Tab 50 Mg PO BID Intelence (Etravirine) 200 Mg Tab 200 Mg PO BID Lisinopril 30 Mg Tab 30 Mg PO DAILY Review of Systems Except as stated in HPI: all other systems reviewed are Neg Physical Exam Narrative GENERAL: Well-nourished, well-developed white male in no acute distress. SKIN: Focused skin assessment warm/dry. Multiple tattoos. There is a 2 cm coin -shaped defect just superior to the medial malleolus of the left leg. It is approximately 3-4 mm deep. The area is erythematous, tender. No warmth, no drainage. HEAD: Normocephalic. EYES: No scleral icterus. No injection or drainage. NECK: Supple, trachea midline. No JVD or lymphadenopathy. CARDIOVASCULAR: Regular rate and rhythm without murmurs, gallops, or rubs. RESPIRATORY: Breath sounds clear and equal bilaterally. No accessory muscle use. GASTROINTESTINAL: Abdomen soft, non-tender, nondistended. Bilateral inguinal hernias, easily reducible. MUSCULOSKELETAL: No cyanosis, or edema. FOCUSED LEFT LOWER EXTREMITIES EXAM: 2+ radial pulse. Patient retains full, active range of motion of the extremity. Flexion and extension of the ankle elicits pain. Neurovascularly intact distally. BACK: Nontender without obvious deformity. No CVA tenderness. Data Data Last Documented VS Vital Signs Date Time Temp Pulse Resp B/P (MAP) Pulse Ox O2 Delivery O2 Flow Rate FiO2 08/07/17 02:24 08/07/17 02:11 60 18 96 Room Air 08/06/17 13:27 98.3 Orders Orders Complete Blood Count With Diff (08/06/17 13:45) Basic Metabolic Panel (Bmp) (08/06/17 13:45) Act Partial Throm Time (Ptt) (08/06/17 13:45) Prothrombin Time / Inr (Pt) (08/06/17 13:45) Westergren Sedimentation Rate (08/06/17 13:45) C-Reactive Protein (Crp) (08/06/17 13:45) Ankle, Complete ([id number]) (08/06/17 ) Blood Culture (08/06/17 19:05) Ketorolac Inj (Toradol Inj) (08/06/17 20:15) Morphine Inj (Morphine Inj) (08/07/17 00:45) Ondansetron Inj (Zofran Inj) (08/07/17 00:45) Gadodiamide Pf Inj (Omniscan Pf Inj) (08/06/17 13:26) Mri Lower Leg W/Wo Contrast (08/07/17 ) Sulfamet-Trimeth Ds 800-160 Mg (Bactrim (08/07/17 02:15) Doxycycline (Vibramycin) (08/07/17 02:15) Ed Discharge Order (08/07/17 02:12) Labs Laboratory Tests Test 08/06/17 18:10 08/06/17 19:00 White Blood Count 2.5 TH/MM3 Red Blood Count 4.27 MIL/MM3 Hemoglobin 12.7 GM/DL Hematocrit 36.6 % Mean Corpuscular Volume 85.8 FL Mean Corpuscular Hemoglobin 29.7 PG Mean Corpuscular Hemoglobin Concent 34.6 % Red Cell Distribution Width 16.0 % Platelet Count 84 TH/MM3 Mean Platelet Volume 8.2 FL Neutrophils (%) (Auto) 45.3 % Lymphocytes (%) (Auto) 39.6 % Monocytes (%) (Auto) 13.4 % Eosinophils (%) (Auto) 1.5 % Basophils (%) (Auto) 0.2 % Neutrophils # (Auto) 1.1 TH/MM3 Lymphocytes # (Auto) 1.0 TH/MM3 Monocytes # (Auto) 0.3 TH/MM3 Eosinophils # (Auto) 0.0 TH/MM3 Basophils # (Auto) 0.0 TH/MM3 CBC Comment AUTO DIFF Differential Comment AUTO DIFF CONFIRMED Platelet Estimate LOW Platelet Morphology Comment NORMAL Ovalocytes 1+ Erythrocyte Sedimentation Rate 46 mm/hr Prothrombin Time 11.7 SEC Prothromb Time International Ratio 1.2 RATIO Activated Partial Thromboplast Time 22.0 SEC Blood Urea Nitrogen 15 MG/DL Creatinine 0.99 MG/DL Random Glucose 86 MG/DL Calcium Level 8.9 MG/DL Sodium Level 138 MEQ/L Potassium Level 3.8 MEQ/L Chloride Level 105 MEQ/L Carbon Dioxide Level 27.8 MEQ/L Anion Gap 5 MEQ/L Estimat Glomerular Filtration Rate 76 ML/MIN C-Reactive Protein 1.30 MG/DL MDM Medical Decision Making Medical Screen Exam Complete: Yes Emergency Medical Condition: Yes Differential Diagnosis PVD versus diabetic foot wound versus osteomyelitis versus cellulitis versus other Narrative Course 61-year-old male with PMH of Hep C, HIV presents to the ED for evaluation of 2 month history of small open wound on the medial malleolus of the left foot. He can identify no acute injury. He endorses pain at the site, worse with ambulation. He denies fevers, chills, nausea, vomiting, numbness, tingling, weakness, limitations or range of motion of the extremity, history of diabetes. He states that his last viral load was undetectable. He is compliant with his HIV medications. He states that he saw his primary care provider, a PA named Anand, who recommended that he come to the ED to rule out osteomyelitis. Vitals reviewed. Physical exam reveals a nontoxic-appearing white male in no acute distress. He has a tender 2 cm coin shaped defect just superior to the left medial malleolus. It's approximately 3-4 mm deep. No tunneling. No discharge. CBC: WBC 2.5. Hemoglobin 12.7. Platelets 84. INR 1.2. CMP unremarkable ESR 46. CRP 1.[address] Paez, pit boss. She requests an MRI of the extremity. This is ordered and pending. The patient is signed out to Dr. Nina at end of shift. Please see her note for disposition. Scripts Sulfamethoxazole-Trimethoprim (Bactrim DS) 800-160 Mg Tab 1 TAB PO BID for Infection, #20 TAB 0 Refills Prov: Janelle Nina MD 08/07/17 Doxycycline Hyclate (Doxycycline Hyclate) 100 Mg Cap 100 MG PO BID for Infection, #20 CAP 0 Refills Prov: Janelle Nina MD 08/07/17 Mimi Jackson Aug 06, 2017 18:11
[2017-08-06 18:29] LABS: AUTOMATED NEUTROPHIL # 1.1 TH/MM3 (1.8-7.7); BASOPHIL % 0.2 % (0.0-2.0); EOSINOPHIL % 1.5 % (0.0-4.0); HEMATOCRIT 36.6 % (39.0-51.0); HEMOGLOBIN 12.7 GM/DL (13.0-17.0); LYMPH % 39.6 % (9.0-44.0); MEAN CELL VOLUME 85.8 FL (80.0-100.0); MEAN CORPUSCULAR HEMOGLOBIN 29.7 PG (27.0-34.0); MEAN CORPUSCULAR HGB CONC 34.6 % (32.0-36.0); MEAN PLATELET VOLUME 8.2 FL (7.0-11.0); MONO % 13.4 % (0.0-8.0); MONOCYTE # 0.3 TH/MM3 (0-0.9); NEUT % 45.3 % (16.0-70.0); PLATELET COUNT 84 TH/MM3 (150-450); RED BLOOD COUNT 4.27 MIL/MM3 (4.50-5.90); WHITE BLOOD COUNT 2.5 TH/MM3 (4.0-11.0)
[2017-08-06 18:39] LABS: INTERNATIONAL NORMALIZED RATIO 1.2 RATIO; PROTHROMBIN TIME - PATIENT 11.7 SEC (9.8-11.6)
[2017-08-06 19:15] LABS: OVALOCYTES 1+ (NORMAL)
[2017-08-06 19:39] VITALS: BP 169/94; PULSE 65; RESP 18; O2SAT 98
[2017-08-06 19:55] LABS: BICARBONATE 27.8 MEQ/L (21.0-32.0); C-REACTIVE PROTEIN 1.3 MG/DL (0.00-0.30); CALCIUM 8.9 MG/DL (8.5-10.1); CREATININE 0.99 MG/DL (0.60-1.30)
[2017-08-06] MEDS ORDERED: KETOROLAC TROMETHAMINE 30 MG/ML (IVP) VIAL IV PUSH ONE (20:15)
[2017-08-07] MEDS ORDERED: ONDANSETRON HCL 4 MG/2 ML VIAL IV PUSH ONE (00:45)
[2017-08-07] MEDS ORDERED: MORPHINE SULFATE 4 MG/ML INJ IV PUSH ONE (00:45)
--- NOTE | 2017-08-07 01:51 | RADRPT ---
EXAM DATE/TIME: 08/07/2017 00:55 [facility] COMPARISON: ANKLE LEFT COMPLETE ([id number]), August 06, 2017, 14:02. INDICATIONS : Osteomyelitis. CONTRAST: 15 cc Omniscan (gadodiamide) IV MEDICAL HISTORY : Hypertension. SURGICAL HISTORY : Left ankle reconstruction, left femur ORIF ENCOUNTER: Initial ACUITY: 1 month PAIN SCORE: 4/10 LOCATION: Left lower leg TECHNIQUE: Multiplanar multisequence MRI examination of the lower leg was performed with and without contrast. FINDINGS: Conventional radiographs and demonstrated prominent medial soft tissue swelling about the ankle joint and distal leg. [id number] of the examination includes the shaft of the tibia and fibula in partial includes the a nkle mortise, but does not include the knee joint. There is normal signal the marrow of the visualiz ed portions of the tibia and fibula. There is moderate soft tissue thickening in the subcutaneous so ft tissues of the anterior medial and lateral leg, greatest in the distal one third, but extending to the middle one 3rd of the leg. No discrete fluid collections seen. No abnormal signal muscles. Mu ltiple prominent varices are seen about the medial lateral aspect of the ankle. CONCLUSION: 1. No signal abnormality within the marrow of the osseous structures of the leg. 2. Subcutaneous soft tissue edema and swelling involving both anterior, medial and lateral mid to dis daiana leg with greatest severity in the distal one third. No drainable fluid collections seen. Juventino Mckinley MD on August 07, 2017 at 1:45 Board Certified Radiologist. This report was verified electronically.
[2017-08-07] MEDS ORDERED: DOXY100C PO (02:04)
[2017-08-07] MEDS ORDERED: BACT800T5 PO (02:04)
[2017-08-07 02:11] VITALS: BP 129/73; PULSE 60; RESP 18; O2SAT 96
--- NOTE | 2017-08-07 02:12 | PD ---
Data Data Last Documented VS Vital Signs Date Time Temp Pulse Resp B/P (MAP) Pulse Ox O2 Delivery O2 Flow Rate FiO2 08/06/17 19:39 65 18 169/94 (119) 98 Room Air 08/06/17 13:27 98.3 Orders Orders Complete Blood Count With Diff (08/06/17 13:45) Basic Metabolic Panel (Bmp) (08/06/17 13:45) Act Partial Throm Time (Ptt) (08/06/17 13:45) Prothrombin Time / Inr (Pt) (08/06/17 13:45) Westergren Sedimentation Rate (08/06/17 13:45) C-Reactive Protein (Crp) (08/06/17 13:45) Ankle, Complete ([id number]) (08/06/17 ) Blood Culture (08/06/17 19:05) Ketorolac Inj (Toradol Inj) (08/06/17 20:15) Morphine Inj (Morphine Inj) (08/07/17 00:45) Ondansetron Inj (Zofran Inj) (08/07/17 00:45) Gadodiamide Pf Inj (Omniscan Pf Inj) (08/06/17 13:26) Mri Lower Leg W/Wo Contrast (08/07/17 ) Sulfamet-Trimeth Ds 800-160 Mg (Bactrim (08/07/17 02:15) Doxycycline (Vibramycin) (08/07/17 02:15) Labs Laboratory Tests Test 08/06/17 18:10 08/06/17 19:00 White Blood Count 2.5 TH/MM3 Red Blood Count 4.27 MIL/MM3 Hemoglobin 12.7 GM/DL Hematocrit 36.6 % Mean Corpuscular Volume 85.8 FL Mean Corpuscular Hemoglobin 29.7 PG Mean Corpuscular Hemoglobin Concent 34.6 % Red Cell Distribution Width 16.0 % Platelet Count 84 TH/MM3 Mean Platelet Volume 8.2 FL Neutrophils (%) (Auto) 45.3 % Lymphocytes (%) (Auto) 39.6 % Monocytes (%) (Auto) 13.4 % Eosinophils (%) (Auto) 1.5 % Basophils (%) (Auto) 0.2 % Neutrophils # (Auto) 1.1 TH/MM3 Lymphocytes # (Auto) 1.0 TH/MM3 Monocytes # (Auto) 0.3 TH/MM3 Eosinophils # (Auto) 0.0 TH/MM3 Basophils # (Auto) 0.0 TH/MM3 CBC Comment AUTO DIFF Differential Comment AUTO DIFF CONFIRMED Platelet Estimate LOW Platelet Morphology Comment NORMAL Ovalocytes 1+ Erythrocyte Sedimentation Rate 46 mm/hr Prothrombin Time 11.7 SEC Prothromb Time International Ratio 1.2 RATIO Activated Partial Thromboplast Time 22.0 SEC Blood Urea Nitrogen 15 MG/DL Creatinine 0.99 MG/DL Random Glucose 86 MG/DL Calcium Level 8.9 MG/DL Sodium Level 138 MEQ/L Potassium Level 3.8 MEQ/L Chloride Level 105 MEQ/L Carbon Dioxide Level 27.8 MEQ/L Anion Gap 5 MEQ/L Estimat Glomerular Filtration Rate 76 ML/MIN C-Reactive Protein 1.30 MG/DL MDM Medical Record Reviewed: Yes Supervised Visit with YAMILET: Yes Narrative Course During the course of the patients emergency department visit, the patients history, examination, and differential diagnosis were reviewed with the patient. The patient was placed on a concrete worker with oximetry and frequent blood pressure monitoring. The patient had IV access obtained and blood work sent for analysis. The patient's case was checked out to me by Mimi, the physician quality control assistant at the conclusion of her shift. The patient was initially discussed with Dr. Walker. The patient presented with concern of recurrence of infection and a chronic wound on his leg. Blood work was sent for analysis. The patient's case was discussed with . She recommended an MRI be done of the site. She recommended that the patient be admitted at the patient had evidence of osteomyelitis, otherwise the patient could be discharged home on antibiotic. She reported that she would see the patient as an outpatient follow-up. The patient was initially provided Toradol for pain, with recurrence of pain the patient was given morphine formally grams IV, Zofran 4 mg IV. After the patient's MRI showed no evidence of osteomyelitis the patient was given Bactrim DS 1 by mouth times one, doxycycline 100 by mouth 1. The patients laboratory studies were reviewed and remarkable for a white count of 2.5, hemoglobin 12.7, platelets 84 with 13.4 monocytes, sedimentation rate is 46, basic metabolic profile is remarkable for a GFR of 76, C-reactive protein 1.3, PT 11.7, INR 1.2, PTT 22 Radial studies were reviewed and remarkable for an ankle x-ray that shows degenerative changes, soft tissue defect, no acute bony abnormality. MRI shows no signal abnormality within the marrow of the osseous structures of the leg, subcutaneous soft tissue edema and swelling involving both the anterior medial and lateral mid to distal leg with greater severity in the distal one third. No drainable fluid collection seen. The patient will be discharged home with a prescription for Bactrim and doxycycline. The patient is instructed to call in the morning for an appointment and follow-up in the next 2 days with . The patient is resting comfortably and feels better, is alert and in no distress. The patients results and examination findings were discussed with the patient. The repeat examination is unremarkable and benign. The history, exam, diagnostic testing, and current condition do not suggest any significant pathology to warrant further testing, continued ED treatment, admission, or surgical evaluation at this point. The vital signs have been stable. The patient does not have uncontrollable pain, intractable vomiting, or other significant symptoms. The patient's condition is stable and appropriate for discharge. The patient will pursue further outpatient evaluation with a primary care physician or other designated or consulting physician as indicated in the discharge instructions. The patient expressed understanding and was agreeable with this plan. Diagnosis Primary Impression: Chronic ulcer of ankle Qualified Codes: L97.329 - Non-pressure chronic ulcer of left ankle with unspecified severity Additional Impression: Infected wound Referrals: Rod Paez DPM call for appointment Patient Instructions: General Instructions, Wound Infection (ED) Med/Other Pt SpecificInfo: Prescription(s) given Scripts Sulfamethoxazole-Trimethoprim (Bactrim DS) 800-160 Mg Tab 1 TAB PO BID for Infection, #20 TAB 0 Refills Prov: Janelle Nina MD 08/07/17 Doxycycline Hyclate (Doxycycline Hyclate) 100 Mg Cap 100 MG PO BID for Infection, #20 CAP 0 Refills Prov: Janelle Nina MD 08/07/17 Disposition: 01 DISCHARGE HOME Condition: Stable Janelle Nina MD Aug 07, 2017 02:12
[2017-08-07] MEDS ORDERED: DOXYCYCLINE HYCLATE 100 MG CAP PO ONE (02:15)
[2017-08-07] MEDS ORDERED: SULFAMETHOXAZOLE-TRIMETHOPRIM DS 800-160 MG TAB PO ONE (02:15)
== END 2017-08-07 02:25 | disposition home or self-care (01) ==
LOC: NEPE 13:25
DX: L97.329 Non-pressure chronic ulcer of left ankle with unspecified severity (principal); L08.9 Local infection of the skin and subcutaneous tissue, unspecified; B20 Human immunodeficiency virus [HIV] disease; B19.20 Unspecified viral hepatitis C without hepatic coma; F32.9 Major depressive disorder, single episode, unspecified; F41.9 Anxiety disorder, unspecified; I10 Essential (primary) hypertension; K74.60 Unspecified cirrhosis of liver; F17.210 Nicotine dependence, cigarettes, uncomplicated
CPT/HCPCS: 73610; 73720; 80048; 85025; 85610; 85652; 85730; 86140; 87040; 96374; 96375; 99285; A9579; J1885; J2270; J2405